=== PATIENT | male | born 1930 | race Caucasian/White ===

== ENCOUNTER 2018-06-01 08:32 | Emergency (ER) | payer MEDICARE, BC ==
[~2018-06-01] VITALS: Ht 185.4 cm; Wt 90.9 kg
[~2018-06-01 08:32] MED LIST: AMPICILLIN 22 G/VIAL IV; ASPIRIN 32325 MG/TAB PO; BENADRYL25 M2 PO; CIPRO 500MG TA500 MG PO; COLACE 100100 MG/CAP PO; DILAUDID 2MG/2 MG/M1 IV; DULCOLAX TAB5 MG PO; FLOMAX 0.40.4 MG/CAP PO; GLUCOSAMINE500 MG PO; NORCO 325 MG-51 TAB PO; NORCO 325 MG-7.1 TAB PO; PERCOCET 325 MG1 TA2 PO; PLAVIX 75MG TAB75 MG PO; PRAVACHOL 40MG40 MG PO; PREDNISONE20 MG; PREDNISONE20 MG PO; PRINCIPEN500 MG PO; PROAIR HFA0.09 MG/AC IH; PROTONIX 40MG T40 MG PO; TESSALON P100 MG/CAP; TYLENOL 500MG500 MG PO; VIAGRA 25MG TAB25 MG PO; XARELTO15 MG PO; XARELTO20 MG PO; ZITHROMAX 250M250 MG PO; ZOCOR 20MG20 MG; ZOCOR 20MG20 MG PO; ZOFRAN 4MG T4 MG/TAB PO; ZOFRAN8 MG PO; ZYLOPRIM 300MG300 MG PO
[2018-06-01 08:35] VITALS: TEMP 97.6
[2018-06-01 09:11] LABS: BASO % 0.3 % (0.0-2.0); EOS % 0.3 % (0-4.0); GRAN # 10.6 (1.4-6.5); GRAN % 90.1 % (42.2-75.2); HEMOGLOBIN 15.5 g/dl (13.5-18.0); LYMPH # 0.3 (1.2-3.4); LYMPH % 2.6 % (20.0-51.0); MEAN CELL VOLUME 95 fl (80.0-100.0); MEAN CORPUSCULAR HEMOGLOBIN 32 pg (27.0-31.0); MEAN CORPUSCULAR HGB CONC 34 g/dl (33.0-37.0); MEAN PLATELET VOLUME 10.6 fl (7.4-10.4); MONO # 0.8 (0.1-0.6); MONO % 6.4 % (1.7-9.3); PLATELET COUNT 192 K/mm3 (130-400); RED BLOOD COUNT 4.85 M/mm3 (4.20-5.60); REDCELL DISTRIBUTION WIDTH-CV 13.6 % (11.5-14.5)
[2018-06-01 09:17] LABS: ALBUMIN 3.8 gm/dL (3.5-5.0); BILIRUBIN,TOTAL 0.9 mg/dL (0.0-1.0); CREATININE, serum 1.2 (0.66-1.25); POTASSIUM 4.9 mmol/L (3.4-5.0); TOTAL PROTEIN 7.3 gm/dL (6.4-8.2)
[2018-06-01 09:52] LABS: COLLECTION METHOD CLEAN CATCH
[2018-06-01] MEDS ORDERED: PLAVIX 75MG TAB75 MG PO (09:52)
[2018-06-01] MEDS ORDERED: GLUCOSAMINE SU500 M2 PO (09:52)
[2018-06-01] MEDS ORDERED: B-12 500 MCG (09:53)
[2018-06-01] MEDS ORDERED: ALEVE 220MG220 MG PO ×2 (09:53→09:54)
[2018-06-01] MEDS ORDERED: VITAMIN D 400400 IU PO (09:54)
[2018-06-01] MEDS ORDERED: LIPITOR 40MG TA40 MG PO (09:54)
[2018-06-01] MEDS ORDERED: SENNA-LAX8.6 MG PO (09:55)
[2018-06-01] MEDS ORDERED: SUDAFED30 MG PO (09:55)
[2018-06-01] MEDS ORDERED: FLEXERIL 1010 MG/TAB PO (09:55)
[2018-06-01] MEDS ORDERED: TESSALON P100 MG/CAP PO (09:55)
[2018-06-01 09:57] LABS: MUCOUS Present /lpf; PH 5 (5-8); SQUAMOUS EPITHELIAL 0-2 /hpf; URINE APPEARANCE Clear; URINE BACTERIA None Seen /hpf; URINE BILIRUBIN Negative (NEGATIVE); URINE BLOOD Negative (NEGATIVE); URINE COLOR Yellow; URINE GLUCOSE Negative (NEGATIVE); URINE KETONE Negative (NEGATIVE); URINE LEUKOCYTE ESTERASE Negative (NEGATIVE); URINE NITRATE Negative (NEGATIVE); URINE PROTEIN(semi-quant) Negative (NEGATIVE); URINE UROBILINOGEN Negative (NEGATIVE)
[2018-06-01] MEDS ORDERED: ZOFRAN ODT4 MG PO (10:53)
[2018-06-01 11:25] VITALS: BP 116/72; PULSE 86
== END 2018-06-01 11:30 | disposition home or self-care (01) ==
LOC: COL.ER 08:32
PROVIDERS: Nurse Practitioner
DX: R11.2 Nausea with vomiting, unspecified (principal); C85.90 Non-Hodgkin lymphoma, unspecified, unspecified site; Z79.02 Long term (current) use of antithrombotics/antiplatelets
CPT/HCPCS: J2405; J7030

== ENCOUNTER → 2019-01-13 | Outpatient (CLI) | payer MEDICARE, BC ==
[~2019-01-13] MED LIST changes: +ALEVE 220MG220 MG PO; +B-12 500 MCG; +FLEXERIL 1010 MG/TAB PO; +GLUCOSAMINE SU500 M2 PO; +LIPITOR 40MG TA40 MG PO; +SENNA-LAX8.6 MG PO; +SUDAFED30 MG PO; +TESSALON P100 MG/CAP PO; +VITAMIN D 400400 IU PO; +ZOFRAN ODT4 MG PO
== END ==
LOC: COL.RAD 12:31
DX: G93.89 Other specified disorders of brain (principal); R41.89 Other symptoms and signs involving cognitive functions and awareness

== ENCOUNTER 2019-03-13 09:55 | Emergency (ER) | payer MEDICARE, BC ==
[~2019-03-13] VITALS: Ht 188 cm; Wt 77.3 kg
[2019-03-13 09:58] VITALS: TEMP 97.8
[2019-03-13 10:54] LABS: BASO % 0.3 % (0.0-2.0); EOS # 0.1 (0.0-0.7); EOS % 0.7 % (0-4.0); GRAN # 5.3 (1.4-6.5); GRAN % 69.6 % (42.2-75.2); HEMATOCRIT 41.6 % (42.0-52.0); HEMOGLOBIN 13.9 g/dl (13.5-18.0); LYMPH # 1.7 (1.2-3.4); LYMPH % 23.1 % (20.0-51.0); MEAN CELL VOLUME 96 fl (80.0-100.0); MEAN CORPUSCULAR HEMOGLOBIN 32 pg (27.0-31.0); MEAN CORPUSCULAR HGB CONC 33 g/dl (33.0-37.0); MEAN PLATELET VOLUME 9.4 fl (7.4-10.4); MONO # 0.4 (0.1-0.6); MONO % 4.8 % (1.7-9.3); PLATELET COUNT 135 K/mm3 (130-400); RED BLOOD COUNT 4.35 M/mm3 (4.20-5.60); REDCELL DISTRIBUTION WIDTH-CV 13.3 % (11.5-14.5)
[2019-03-13 11:08] LABS: ALANINE AMINOTRANSFERASE 29 U/L (21-72); ALBUMIN 3.2 gm/dL (3.5-5.0); ALKALINE PHOSPHATASE 73 U/L (50-136); ANION GAP 7 mmol/L (7-16); AST,SGOT 23 U/L (15-37); BILIRUBIN,TOTAL 0.6 mg/dL (0.0-1.0); BLOOD UREA NITROGEN 20 mg/dL (9-20); CALCIUM 8.8 mg/dL (8.4-10.2); CARBON DIOXIDE 29 mmol/L (22-30); CHLORIDE 105 mmol/L (98-107); CREATININE, serum 1.16 (0.66-1.25); GLUCOSE 85 mg/dL (74-106); POTASSIUM 3.8 mmol/L (3.4-5.0); SODIUM 141 mmol/L (137-145); TOTAL PROTEIN 6.2 gm/dL (6.4-8.2)
[2019-03-13 11:26] LABS: TROPONIN-I < 0.012 ng/mL (0.000-0.035)
[2019-03-13 11:28] LABS: COLLECTION METHOD CLEAN CATCH
[2019-03-13 11:35] LABS: MUCOUS Present /lpf; PH 7 (5-8); SQUAMOUS EPITHELIAL 0-2 /hpf; URINE APPEARANCE Clear; URINE BACTERIA None Seen /hpf; URINE BILIRUBIN Negative (NEGATIVE); URINE BLOOD Negative (NEGATIVE); URINE COLOR Yellow; URINE GLUCOSE Negative (NEGATIVE); URINE KETONE Negative (NEGATIVE); URINE LEUKOCYTE ESTERASE Negative (NEGATIVE); URINE NITRATE Negative (NEGATIVE); URINE PROTEIN(semi-quant) Negative (NEGATIVE); URINE RBC 0-2 /hpf; URINE UROBILINOGEN Negative (NEGATIVE)
[2019-03-13] MEDS ORDERED: KEPPRA1000 MG PO (12:13)
[2019-03-13 14:10] VITALS: BP 112/69; PULSE 93
== END 2019-03-13 14:10 | disposition home or self-care (01) ==
LOC: COL.ER 09:55
PROVIDERS: Emergency Medicine
DX: S09.90XA Unspecified injury of head, initial encounter (principal); W19.XXXA Unspecified fall, initial encounter; Z79.02 Long term (current) use of antithrombotics/antiplatelets
CPT/HCPCS: J7030

== ENCOUNTER → 2019-03-15 | Outpatient (CLI) | payer MEDICARE, BC ==
[~2019-03-15] MED LIST changes: +KEPPRA1000 MG PO
== END ==
LOC: COL.RAD 11:30
DX: G31.9 Degenerative disease of nervous system, unspecified (principal); T14.8XXA Other injury of unspecified body region, initial encounter; I67.82 Cerebral ischemia; G93.89 Other specified disorders of brain